=== PATIENT | female | born 1945 | race Caucasian/White ===

== ENCOUNTER → 2019-03-16 | Outpatient (REF) | payer MEDICARE, OTHER | LOC: M LAB REF 18:49 | PROVIDERS: ATTEND Dermatology | DX: D48.9 Neoplasm of uncertain behavior, unspecified (principal) | CPT/HCPCS: 11103; 11104; 17000; 88305; G0463 ==

== ENCOUNTER → 2019-07-26 | Outpatient (CLI) | payer MEDICARE, OTHER ==
--- NOTE | 2019-07-27 07:14 | ECHO ---
DATE OF PROCEDURE: 07/26/2019 REFERRING PHYSICIAN: Dr. Wade Abreu INDICATION: Palpitations. HEIGHT: 157 cm WEIGHT: 63 kg DIMENSIONS: IVS: 0.9 LV: 4.1 LVPW: 0.9 LA: 3.2 Aorta: 2.6 IVC: 1.7 Mitral E wave velocity: 90 A wave: 99 E prime septal: 6.5 E prime lateral: 7.9 FINDINGS: The study is of acceptable technical quality. The patient is in sinus rhythm. Left ventricle is normal size and normal systolic function, estimated left ventricle ejection fraction (LVEF) is 60-65%. I do not appreciate any segmental wall motion abnormalities. Right ventricle also appears normal. Both atria appear normal. Aortic valve has three cusps, it is mildly sclerotic, but mobility is preserved. There are also mild degenerative abnormalities of mitral valve without impairment of leaflet mobility. Tricuspid valve appears normal. Pulmonic valve was not well seen. No pericardial effusion is noted. Inferior vena cava is normal size. Aortic root and aortic arch appear normal. Abdominal aorta was poorly visualized. Doppler interrogation reveals no aortic stenosis and trace aortic insufficiency. There is mild mitral and mild tricuspid insufficiency. Estimated pulmonary artery pressure is on upper limits of normal values or mildly elevated. Mitral inflow pattern and tissue Doppler imaging of mitral annulus reveals grade 1 diastolic dysfunction. Global longitudinal strain was calculated as negative 18.1%, which is within normal values. CONCLUSIONS: 1. Study is of acceptable technical quality, patient is in sinus rhythm. 2. Normal LV size with normal LV systolic function and grade 1 diastolic dysfunction. 3. Aortic sclerosis with no significant stenosis and trace insufficiency. 4. Mild mitral and mild tricuspid insufficiency. 5. Normal central venous pressure and normal or possibly mildly elevated pulmonary artery pressure. COMMENT: Subacute bacterial endocarditis (SBE) prophylaxis is not recommended.
== END ==
LOC: M CARPUL 09:29
PROVIDERS: ATTEND Family Medicine
DX: R00.2 Palpitations (principal); I35.8 Other nonrheumatic aortic valve disorders

== ENCOUNTER → 2020-12-28 | Outpatient (REF) | payer MEDICARE, OTHER | LOC: M LAB REF 13:59 | PROVIDERS: ATTEND Physician Assistant | DX: L82.1 Other seborrheic keratosis (principal) | CPT/HCPCS: 11102; 88305; G0463 ==

== ENCOUNTER → 2021-02-26 | Outpatient (CLI) | payer MEDICARE, OTHER | LOC: M RAD 09:29 | PROVIDERS: ATTEND Family Medicine | DX: R06.02 Shortness of breath (principal); Z87.891 Personal history of nicotine dependence ==

== ENCOUNTER → 2022-04-18 | Outpatient (CLI) | payer MEDICARE, OTHER | LOC: M RAD 10:22 | PROVIDERS: ATTEND Family Medicine | DX: Z87.891 Personal history of nicotine dependence (principal) ==

== ENCOUNTER → 2024-01-30 | Outpatient (REF) | payer MEDICARE, OTHER | LOC: M SFHCDERM 17:11 | PROVIDERS: ATTEND Nurse Practitioner Family | DX: C44.311 Basal cell carcinoma of skin of nose (principal) ==

== ENCOUNTER → 2024-04-26 | Outpatient (CLI) | payer MEDICARE, OTHER | LOC: M RAD 13:06 | PROVIDERS: ATTEND Family Medicine | DX: Z87.891 Personal history of nicotine dependence (principal) ==